=== PATIENT | male | born 1970 | race Caucasian/White ===

== ENCOUNTER 2016-04-13 12:09 | Observation (INO) | payer BC ==
[~2016-04-13] VITALS: Ht 180.3 cm; Wt 137.6 kg
[~2016-04-13 12:09] MED LIST: CHILD ASPIRIN81 M1 PO; Ecotrin PO; LISINOPRIL10 MG PO; LOPRESSOR12.5 MG PO; LOPRESSOR25 MG PO; Lipitor PO; METOPROLOL TART25 MG PO; NOHOMEMEDS; ZESTRIL,PRINIVI10 M1 PO; ZESTRIL,PRINIVI40 MG PO
[2016-04-13 15:14] LABS: HEMATOCRIT 40.7 % (38.0-50.0); MCHC 34.2 G/DL (30.0-36.0); MCV 87.7 FL (86-99); PLATELET COUNT 212 K/uL (156-360); RBC DIS.WIDTH-CV 13.4 % (11.8-14.6); RBC DIS.WIDTH-SD 42.1 % (39-53); RED BLOOD COUNT 4.64 M/uL (4.00-5.50); WHITE BLOOD COUNT 8.1 K/uL (4.1-10.2)
[2016-04-13 15:23] LABS: CHLORIDE 106 mEq/L (99-109); POTASSIUM 3.7 mEq/L (3.7-5.4); SODIUM 140 mEq/L (136-147)
[2016-04-13 15:25] LABS: GLUCOSE 92 mg/dL (70-99)
[2016-04-13 15:26] LABS: ANION GAP 10 MEQ/L (2-14)
[2016-04-13 15:27] LABS: TOTAL BILIRUBIN 0.4 mg/dL (0.0-1.0)
[2016-04-13 15:28] LABS: ALKALINE PHOSPHATASE 45 IU/L (3-129)
[2016-04-13 15:29] LABS: GFR ESTIMATE (CALCULATED) > 59 mL/min/
[2016-04-13 15:30] LABS: UREA NITROGEN (BUN) 18 mg/dL (9-23)
[2016-04-13] MEDS ORDERED: ECOTRIN325 MG PO (16:38)
[2016-04-13] MEDS ORDERED: ZESTRIL10 MG PO (16:39)
[2016-04-13] MEDS ORDERED: LIPITOR20 MG PO (16:40)
[2016-04-13] MEDS ORDERED: TYLENOL EXTRA500 MG PO (16:40)
[2016-04-13] MEDS ORDERED: NIGHT TIME COL1 EACH PO (16:41)
[2016-04-13] MEDS ORDERED: AFRIN,GENASAL D15 ML BOTH NARES (16:41)
[2016-04-13 17:49] VITALS: BP 159/102
[2016-04-13 21:40] VITALS: BP 182/98
[2016-04-13 23:50] VITALS: BP 170/97
[2016-04-14 04:53] VITALS: BP 129/67
[2016-04-14 07:04] LABS: ANION GAP 8 MEQ/L (2-14); CHLORIDE 104 MEQ/L (99-109); GFR ESTIMATE (CALCULATED) > 59 mL/min/; GLUCOSE 104 mg/dL (70-99); HDL CHOLESTEROL 37 MG/DL (Desirable>=40); LDL CHOLESTEROL 127 mg/dL (Desirable<100); NON-HDL CHOLESTEROL 160 mg/dL (Desirable<160); POTASSIUM 3.6 MEQ/L (3.7-5.4); SAMPLE HEMOLYSIS CHECK 0; SAMPLE ICTERIC CHECK 0; SAMPLE LIPEMIA CHECK 0; SODIUM 138 MEQ/L (136-147); TOTAL CHOLESTEROL 197 mg/dL (Desirable<200); TRIGLYCERIDES 166 MG/DL (Normal: <150); UREA NITROGEN (BUN) 17 mg/dL (9-23)
[2016-04-14 08:40] VITALS: BP 173/108
[2016-04-14 08:42] VITALS: BP 175/99
[2016-04-14 09:00] VITALS: BP 128/73
[2016-04-14 11:57] VITALS: BP 169/91
[2016-04-14] MEDS ORDERED: LOPRESSOR25 MG PO (13:17)
[2016-04-14] MEDS ORDERED: LIPITOR20 MG PO (13:17)
[2016-04-14] MEDS ORDERED: LISINOPRIL10 MG PO (13:17)
== END 2016-04-14 15:26 | disposition home or self-care (01) ==
LOC: EME 12:09 → EDOF 16:39 → 5WEST 16:39 → EDOF 16:39 → 5WEST 17:22
PROVIDERS: Family Medicine; Physician Assistant Medical
DX: I16.0 Hypertensive urgency (principal); I10 Essential (primary) hypertension; E78.5 Hyperlipidemia, unspecified; Z82.49 Family history of ischemic heart disease and other diseases of the circulatory system; Z91.128 Patient's intentional underdosing of medication regimen for other reason; T46.4X6A Underdosing of angiotensin-converting-enzyme inhibitors, initial encounter; Z88.5 Allergy status to narcotic agent
CPT/HCPCS: 70450; 80048; 80053; 80061; 85027; 93005; 99281; 99285; G0378; J0360